=== PATIENT | female | born 1955 | race Hispanic/Latino ===

== ENCOUNTER → 2020-09-17 | Outpatient (CLI) | payer OTHER | END | disposition home or self-care (01) | LOC: RAH 09:13 | PROVIDERS: ATTEND Internal Medicine | DX: Z12.31 Encounter for screening mammogram for malignant neoplasm of breast (principal); N64.89 Other specified disorders of breast | CPT/HCPCS: 77067 ==

== ENCOUNTER → 2020-12-07 | Outpatient (CLI) | payer OTHER | END | disposition home or self-care (01) | LOC: RAH 10:38 | PROVIDERS: ATTEND Internal Medicine | DX: K80.20 Calculus of gallbladder without cholecystitis without obstruction (principal); N32.89 Other specified disorders of bladder; R31.9 Hematuria, unspecified | CPT/HCPCS: 76770 ==

== ENCOUNTER → 2022-05-07 | Outpatient (CLI) | payer OTHER | END | disposition home or self-care (01) | LOC: RAH 10:03 | PROVIDERS: ATTEND Internal Medicine | DX: Z12.31 Encounter for screening mammogram for malignant neoplasm of breast (principal) | CPT/HCPCS: 77067 ==

== ENCOUNTER → 2023-05-13 | Outpatient (CLI) | payer OTHER | END | disposition home or self-care (01) | LOC: RAH 08:51 | PROVIDERS: ATTEND Internal Medicine | DX: Z12.31 Encounter for screening mammogram for malignant neoplasm of breast (principal) | CPT/HCPCS: 77067 ==

== ENCOUNTER 2024-02-22 23:14 | Emergency (ER) | payer OTHER ==
[~2024-02-22] VITALS: Ht 152.4 cm; Wt 70.8 kg
[2024-02-22 23:20] LABS: GLUCOSE POC COMMENT Notified Nurse
--- NOTE | 2024-02-22 23:22 | ERN ---
ED Note History of Present Illness Stated Complaint: DOG SCRATCH Chief Complaint: Other Problems Time Seen by MD: 23:22 Dictation: Comes in because she was scratched by an animal. Had some redness and pain there at the ankle. Allergies: Coded Allergies: No Known Allergies (Unverified Allergy, Unknown, 02/22/24) Past Medical History Past Medical History: Diabetes-Type II, High Cholesterol, Hypertension Surgical History: Other, BTL Surgical History Other: BILATERAL TRIGGER FINGER Review of System Dictation Constitutional: Negative for fever,chills, and weight loss Eyes: Negative for injury, pain,redness, and discharge ENT: Negative for injury,pain or swelling Cardiovascular: Negative for chest pain, palpitations, and edema Respiratory: Negative for shortness of breath, cough, and wheezing, Abdomen/GI: Negative for abdominal pain, nausea, vomiting, diarrhea, and constipation Back: Negative for injury and pain : Negative for injury, bleeding and discharge MS/Extremity: Negative for injury and deformity Skin: Cellulitis Neuro: Negative for headache, weakness, numbness, tingling, and seizure Psych: Negative for suicide ideation, homicidal ideation, and hallucinations Initial Vital Sign VS Vital Signs Date Time Temp Pulse Resp B/P (MAP) Pulse Ox O2 Delivery O2 Flow Rate FiO2 02/22/24 23:16 98.1 90 20 153/74 100 Room Air Physical Exam Dictation General: awake, alert, NAD Head/Face: Normocephalic, atraumatic Eyes: PERRL, EOMI, vision at baseline ENT: oral cavity clear, TMs clear, no signs of infection Neck: Trachea midline, supple, no nuchal rigidity Cardiovascular: RRR, normal S1/S2, No MRGs, no JVD Respiratory: CTAB, no respiratory distress, No rales or wheezes Abdomen: Soft, non-tender, non-distended, normal bowel sounds, no guarding or rebound. Skin: Cellulitis cellulitis. There is no calf swelling there is no expanding erythema. The on the wound itself. This is about a 1/2 a want to have erythematous lesion. MS/Extremity: Pulses equal, no cyanosis, neurovascular intact, FROM Neuro: COAx4, GCS 15, strength 5/5, CN 2-12 intact, normal cerebellar exam, normal gait, Psych: Normal behavior, mood, and affect normal Results (Laboratory/Radiology) Laboratory/Radiology Laboratory Tests Test 02/22/24 23:17 Whole Blood Glucose 76 MG/DL (70-110) Bedside Glucose Comment Protocol Initiated Bedside Glucose #2 Comment Stat Lab Glu Request Bedside Glucose #3 Comment Notified Nurse ED Course ED Course Orders Procedure Category Date Status Time Cbc With Differential LAB 02/22/24 Logged 23:16 Basic Metabolic Panel LAB 02/22/24 Logged 23:16 Bedside Glucose CPOE 02/22/24 Transmitted Fingerstick 23:16 Vital Signs Date Time Temp Pulse Resp B/P (MAP) Pulse Ox O2 Delivery O2 Flow Rate FiO2 02/22/24 23:16 98.1 90 20 153/74 100 Room Air Medical Decision Making MDM This was around people is provoked. Says it has all the vaccines everything. The small cellulitis 1.5 x 1.5 cm. No signs of swelling erythema no signs of DVT also neck fast stable for outpatient management with antibiotics. DX & DISP Disposition: Discharge Departure Impression: Primary Impression: Cellulitis Condition: Stable Scripts Doxycycline Hyclate (Doxycycline Hyclate) 50 Mg Capsule 1 CAP PO BID for 10 Days, #20 CAP 0 Refills Prov: CARMEN MEJIA MD 02/22/24 Ciprofloxacin HCl (Cipro) 500 Mg Tablet 1 TAB PO BID for 10 Days, #20 TAB 0 Refills Prov: CARMEN MEJIA MD 02/22/24 Referrals: DUGLAS ESTES (PCP) CARMEN MEJIA MD Feb 22, 2024 23:22
--- NOTE | 2024-02-22 23:34 | NUR ---
PER PT, TYLENOL 1000MG AT 2330 PER PT DOG IS UP TO DATE WITH ALL IMMUNIZATION
[2024-02-22] MEDS ORDERED: CIPR-278 PO (23:37)
[2024-02-22] MEDS ORDERED: DOXY50CA2 PO (23:37)
[2024-02-23 01:50] VITALS: BP 132/76; PULSE 79; RESP 16; TEMP 97.6; O2SAT 97
== END 2024-02-23 02:04 | disposition home or self-care (01) ==
LOC: EDH 23:14
DX: L03.116 Cellulitis of left lower limb (principal); E11.9 Type 2 diabetes mellitus without complications; E78.00 Pure hypercholesterolemia, unspecified; I10 Essential (primary) hypertension; Z98.51 Tubal ligation status; Z98.890 Other specified postprocedural states
CPT/HCPCS: 36415; 80048; 82948; 85025; 99283

== ENCOUNTER → 2024-05-14 | Outpatient (CLI) | payer OTHER ==
[~2024-05-14] MED LIST: CIPR-278 PO; DOXY50CA2 PO
--- NOTE | 2024-05-14 11:07 | HMCIMG ---
Exam Type: MAMMO SCREENING BILATERAL Clinical Information: ANNUAL SCREENING Comparison: May 13, 2023 Technique: Mammogram with CAD was performed with CC and MLO projections. CAD shows no worrisome regions. FINDINGS: The breasts are heterogeneously dense, which may obscure small masses. No dominant mass or suspicious microcalcification identified. There is no nipple retraction or skin thickening. Benign-appearing calcifications are seen. CAD shows no worrisome regions. IMPRESSION: 1. No mammographic signs of malignancy. 2. Routine follow-up recommended. CATEGORY 2: BENIGN FINDINGS Note: A negative x-ray should not delay biopsy if a dominant or clinically suspicious mass is present, since 8-10% of cancers are not identified by mammography. Dense breasts may obscure an underlying neoplasm.
== END | disposition home or self-care (01) ==
LOC: RAH 09:00
PROVIDERS: ATTEND Internal Medicine
DX: Z12.31 Encounter for screening mammogram for malignant neoplasm of breast (principal); R92.333 Mammographic heterogeneous density, bilateral breasts
CPT/HCPCS: 77067